=== PATIENT | male | born 1950 | race American Indian/Alaskan Native ===

== ENCOUNTER 2022-05-24 14:45 | Emergency (ER) | payer BC ==
[~2022-05-24] VITALS: Ht 172.7 cm; Wt 81.6 kg
[2022-05-24] MEDS ORDERED: LYRICA100 MG (15:39)
[2022-05-24] MEDS ORDERED: LISINOPRIL2.5 MG (15:40)
[2022-05-24] MEDS ORDERED: METROPOLOL 50 MG. (15:42)
[2022-05-24] MEDS ORDERED: ASPIRINA 81 MG. (15:43)
[2022-05-24] MEDS ORDERED: CLONAZEPAN (15:43)
[2022-05-24] MEDS ORDERED: ZITHROMAX TRI-500 MG PO (17:47)
== END 2022-05-24 18:06 | disposition home or self-care (01) ==
LOC: ER 14:45
DX: B34.8 Other viral infections of unspecified site (principal); Z20.828 Contact with and (suspected) exposure to other viral communicable diseases